=== PATIENT | female | born 1995 | race Caucasian/White ===

== ENCOUNTER 2017-03-21 19:03 | Emergency (ER) | payer OTHER ==
[~2017-03-21] VITALS: Ht 160 cm; Wt 67.6 kg
[2017-03-21 20:42] VITALS: BP 110/69
== END 2017-03-21 20:05 | disposition home or self-care (01) ==
LOC: ED 19:03
DX: J02.9 Acute pharyngitis, unspecified (principal)

== ENCOUNTER 2017-06-23 18:50 | Emergency (ER) | payer OTHER ==
[2017-06-23 21:19] VITALS: BP 101/60
== END 2017-06-23 21:19 | disposition home or self-care (01) ==
LOC: ED 18:50
DX: O99.512 Diseases of the respiratory system complicating pregnancy, second trimester (principal); J30.9 Allergic rhinitis, unspecified; O23.42 Unspecified infection of urinary tract in pregnancy, second trimester; Z3A.17 17 weeks gestation of pregnancy; Z88.2 Allergy status to sulfonamides

== ENCOUNTER 2018-01-01 12:31 | Emergency (ER) | payer OTHER ==
[~2018-01-01] VITALS: Ht 162.6 cm; Wt 69.8 kg
[2018-01-01 14:36] VITALS: BP 114/69
== END 2018-01-01 14:20 | disposition home or self-care (01) ==
LOC: ED 12:31
DX: K21.9 Gastro-esophageal reflux disease without esophagitis (principal)